=== PATIENT | female | born 1995 | race Caucasian/White ===

== ENCOUNTER 2018-09-26 13:39 | Emergency (ER) | payer OTHER, MEDICAID ==
[~2018-09-26] VITALS: Ht 152.4 cm; Wt 59.9 kg
[2018-09-26 13:55] VITALS: BP 108/66
--- NOTE | 2018-09-26 14:35 | NUR ---
DAMOIN UP TO EVALUATE PT
--- NOTE | 2018-09-26 14:35 | NUR ---
BIB MOM FOR FEVER X 1 DAY. FEVER AT HOME 99.2. MOM GAVE TYLENOL AT NOON. MED HX: AUTISIC/EPILEPSY
--- NOTE | 2018-09-26 14:58 | NUR ---
Patient discharged with v/s stable. Written and verbal after care instructions given and explained to parent/guardian. Parent/Guardian verbalized understanding of instructions. with to home. All questions addressed prior to discharge. ID band removed. Parent/Guardian advised to follow up with PMD. Rx of CHILDREN'S IBUPROFEN, ACETAMINOPHEN AND PROMETHAZINE given. Parent/Guardian educated on indication of medication including possible reaction and side effects. Opportunity to ask questions provided and answered.
[2018-09-26 14:59] VITALS: BP 108/66
== END 2018-09-26 14:58 | disposition home or self-care (01) ==
LOC: MED 13:39
DX: J06.9 Acute upper respiratory infection, unspecified (principal); F84.0 Autistic disorder
CPT/HCPCS: 99283

== ENCOUNTER 2018-10-05 11:36 | Emergency (ER) | payer OTHER, MEDICAID ==
[~2018-10-05] VITALS: Ht 154.9 cm; Wt 58.1 kg
--- NOTE | 2018-10-05 11:36 | NUR ---
PATIENT BIB EMS TO BED 09 AT THIS TIME.
[2018-10-05 11:40] VITALS: BP 106/56
--- NOTE | 2018-10-05 11:40 | NUR ---
23 Y FEMALE BIB [facility] FROM [facility] W/ HER MOTHER. WITNESSED SEIZURE FOR ABOUT A MINUTE. PER HER MOTHER SHE LAST SEIZURE WAS 2 WKS AGO, ALTHOUGH THE SEUIZURES HAVE BEEN OCCURING MORE FREQUENTLY. DENIES HEAD INJURY. DENIES VOMITING. PT IS NON-VERBAL. VSS AT THIS TIME. BED IS DOWN, LOCKED, BED RAIL X 1, ERMD TO SEE PT. HX; EPILEPSY, AUTISM, SEIZURES RX; TEGRETOL, LAMOTRIGINE, TOPAMAX- UNKNOWN DOSE
--- NOTE | 2018-10-05 11:41 | NUR ---
SEIZURE PRECAUTIONS IN PLACE, SEIZURE PADS PLACED.
--- NOTE | 2018-10-05 11:42 | NUR ---
RESIDENT RICCARDO AT PT BEDSIDE
--- NOTE | 2018-10-05 11:48 | NUR ---
BASELINE WITHIN NORMAL LIMITS FOR PATIENT AT THIS TIME. AMBULATORY STEADY.
[2018-10-05] MEDS ORDERED: CARB100S (12:08)
[2018-10-05] MEDS ORDERED: TOPI15CA (12:08)
[2018-10-05] MEDS ORDERED: LAM25 PO (12:09)
--- NOTE | 2018-10-05 12:21 | NUR ---
LAB AT BEDSIDE
[2018-10-05 12:34] LABS: BASOPHILS % (AUTO) 0.4 % (0.0-2.0); EOSINOPHILS # (AUTO) 0.7 K/uL (0-0.4); EOSINOPHILS % (AUTO) 7.3 % (0.0-4.0); HEMATOCRIT 38.6 % (36-48); HEMOGLOBIN 12.7 g/dL (12.0-16.0); LYMPHOCYTES # (AUTO) 2.1 K/uL (2.5-16.5); LYMPHOCYTES % (AUTO) 21.3 % (20.5-51.1); MEAN CORPUSCULAR HEMOGLOBIN 29 pg (27-31); MEAN CORPUSCULAR HGB CONC 33 g/dL (33-37); MEAN CORPUSCULAR VOLUME 88.5 fL (80-94); MONOCYTES # (AUTO) 0.5 K/uL (0.8-1.0); MONOCYTES % (AUTO) 5.6 % (1.7-9.3); NEUTROPHILS # (AUTO) 6.3 K/uL (1.8-7.7); NEUTROPHILS % (AUTO) 65.4 % (42.2-75.2); PLATELET COUNT (AUTO) 422 K/uL (140-450); RED BLOOD CELL COUNT(AUTO) 4.36 MIL/uL (4.20-5.40); RED CELL DISTRIBUTION WIDTH 13.8 % (11.6-13.7); WHITE BLOOD COUNT (AUTO) 9.7 K/uL (4.8-10.8)
[2018-10-05 12:45] LABS: ANION GAP 10.9 (8-16); CREATININE 0.8 mg/dL (0.6-1.3); POTASSIUM 3.9 mmol/L (3.5-5.1); TOTAL BILIRUBIN 0.1 mg/dL (0.0-1.0)
[2018-10-05 13:39] VITALS: BP 98/55
--- NOTE | 2018-10-05 13:40 | NUR ---
Patient discharged with v/s stable. Written and verbal after care instructions given and explained to pt's mother. Patient alert, oriented and pt's mother verbalized understanding of instructions. All questions addressed prior to discharge. ID band removed. Patient advised to follow up with PMD. Opportunity to ask questions provided and answered.
== END 2018-10-05 13:40 | disposition home or self-care (01) ==
LOC: MED 11:36
DX: G40.909 Epilepsy, unspecified, not intractable, without status epilepticus (principal); F84.0 Autistic disorder; Z79.899 Other long term (current) drug therapy
CPT/HCPCS: 36415; 80053; 85025; 99283

== ENCOUNTER 2018-10-31 09:29 | Emergency (ER) | payer OTHER, MEDICAID ==
[~2018-10-31] VITALS: Ht 154.9 cm; Wt 59.6 kg
[~2018-10-31 09:29] MED LIST: CARB100S; LAM25 PO; TOPI15CA
[2018-10-31 09:42] VITALS: BP 117/71
--- NOTE | 2018-10-31 10:10 | NUR ---
23 Y FEMALE BIB MOTHER C/O POOR APPETITE X2 DAYS. PT NON-VERBAL, NO SIGNS OF PAIN OR DISTRESS. -N/V/D. LAST BM YESTERDAY. LAST SIEZURE WAS YESTERDAY, PER MOM USUALY 1 SIEZURE PER MONTH. VSS AT THIS TIME. BED IS DOWN, LOCKED, BED RAIL X 1, ERMD TO SEE PT. MEDHX:AUTISM, EPILEPSY RX:TOPIRAMATE, CARBAMAZEPIN, LAMOTRIGINE
--- NOTE | 2018-10-31 10:19 | NUR ---
DR SIMMS AT BEDSIDE
--- NOTE | 2018-10-31 10:29 | NUR ---
PT AMB TO RESTROOM WITH MOTHER. STEADY GAIT
--- NOTE | 2018-10-31 10:32 | NUR ---
PT UNABLE TO GIVE URINE
--- NOTE | 2018-10-31 10:38 | NUR ---
LAB AT BEDSIDE
--- NOTE | 2018-10-31 10:41 | NUR ---
PT GIVEN WATER, WILL TRY URINE AFTER PATIENT DRINKS WATER
[2018-10-31 10:53] LABS: BASOPHILS # (AUTO) 0.1 K/uL (0.00-0.22); BASOPHILS % (AUTO) 0.6 % (0.0-2.0); EOSINOPHILS # (AUTO) 0.9 K/uL (0-0.4); EOSINOPHILS % (AUTO) 8.7 % (0.0-4.0); HEMOGLOBIN 13.4 g/dL (12.0-16.0); LYMPHOCYTES # (AUTO) 2.6 K/uL (2.5-16.5); LYMPHOCYTES % (AUTO) 24.3 % (20.5-51.1); MEAN CORPUSCULAR HEMOGLOBIN 29 pg (27-31); MEAN CORPUSCULAR HGB CONC 32 g/dL (33-37); MEAN CORPUSCULAR VOLUME 90.1 fL (80-94); MONOCYTES # (AUTO) 0.6 K/uL (0.8-1.0); MONOCYTES % (AUTO) 5.2 % (1.7-9.3); NEUTROPHILS # (AUTO) 6.6 K/uL (1.8-7.7); NEUTROPHILS % (AUTO) 61.2 % (42.2-75.2); PLATELET COUNT (AUTO) 457 K/uL (140-450); RED BLOOD CELL COUNT(AUTO) 4.66 MIL/uL (4.20-5.40); RED CELL DISTRIBUTION WIDTH 13.7 % (11.6-13.7); WHITE BLOOD COUNT (AUTO) 10.8 K/uL (4.8-10.8)
[2018-10-31 11:13] LABS: ALBUMIN 3.4 g/dL (3.4-5.0); ANION GAP 13.1 (8-16); CARBON DIOXIDE 25.2 mmol/L (21-32); CREATININE 0.9 mg/dL (0.6-1.3); POTASSIUM 3.3 mmol/L (3.5-5.1); TOTAL BILIRUBIN 0.2 mg/dL (0.0-1.0)
--- NOTE | 2018-10-31 11:19 | NUR ---
Ana lezama in [facility] - 10/31/18 at [email or web address] SIMMS AT BEDSIDE
--- NOTE | 2018-10-31 11:31 | NUR ---
PT STILL UNABLE TO GIVE URINE, DR SIMMS OKSAMRA TO DISCHARGE WITHOUT URINE COLLECTION
--- NOTE | 2018-10-31 11:40 | NUR ---
MOTHER STATES SHE WOULD LIKE TO WAIT ANOTHER 30 MIN AND TRY FOR URINE AGAIN
--- NOTE | 2018-10-31 12:10 | NUR ---
# 8 FR Urinary catheter inserted utilizing sterile technique. Immediate return of YELLOW urine noted. Urine sample collected and sent to lab. Pt tolerated procedure WELL.
[2018-10-31 12:20] VITALS: BP 123/74
--- NOTE | 2018-10-31 12:20 | NUR ---
Patient discharged with v/s stable. Written and verbal after care instructions given and explained TO MOTHER. MOTHER verbalized understanding. PATIENT Ambulatory with steady gait. All questions addressed prior to discharge. Advised to follow up with PMD.
== END 2018-10-31 12:20 | disposition home or self-care (01) ==
LOC: MED 09:29
DX: R11.10 Vomiting, unspecified (principal); R19.7 Diarrhea, unspecified; R63.0 Anorexia; F84.0 Autistic disorder; Z98.890 Other specified postprocedural states; Z79.899 Other long term (current) drug therapy
CPT/HCPCS: 36415; 80053; 81002; 81025; 85025; 99283; C1758

== ENCOUNTER 2018-12-05 20:15 | Emergency (ER) | payer OTHER, MEDICAID ==
[~2018-12-05] VITALS: Ht 162.6 cm; Wt 73.9 kg
[2018-12-05 21:04] VITALS: BP 113/65
[2018-12-05] MEDS ORDERED: LAM200 PO (21:09)
[2018-12-05] MEDS ORDERED: CARB200T4 PO (21:10)
[2018-12-05] MEDS ORDERED: TOPI100T33 PO (21:11)
--- NOTE | 2018-12-05 22:02 | NUR ---
PT AMBULATED TO BED 11
--- NOTE | 2018-12-05 22:10 | NUR ---
23 Y/O FEMALE BIB MOTHER, PRESENTS TO ED, C/O FEVER. MOTHER STATES, PT HAD A FEVER AROUND 1900 THIS MORNING TEMP 99.2. PT IS AUTISTIC AND HAS HX OF EPILEPSY, LAST SEIZURE WAS 6 DAYS AGO. PT HAS [employer]. PT ABLE TO AMBULATE. MOTHER STATES, PT'S SEIZURE GETS TRIGGERED BY HIGH TEMP. PT VSS. DR FERRER AWARE. WILL CONTINUE TO MONITOR.
[2018-12-05 22:11] LABS: BASOPHILS # (AUTO) 0.1 K/uL (0.00-0.22); BASOPHILS % (AUTO) 0.5 % (0.0-2.0); EOSINOPHILS % (AUTO) 9.1 % (0.0-4.0); HEMATOCRIT 39.2 % (36-48); LYMPHOCYTES # (AUTO) 3.8 K/uL (2.5-16.5); LYMPHOCYTES % (AUTO) 34.3 % (20.5-51.1); MEAN CORPUSCULAR HEMOGLOBIN 29 pg (27-31); MEAN CORPUSCULAR HGB CONC 33 g/dL (33-37); MEAN CORPUSCULAR VOLUME 88.2 fL (80-94); MONOCYTES # (AUTO) 0.7 K/uL (0.8-1.0); MONOCYTES % (AUTO) 6.7 % (1.7-9.3); NEUTROPHILS # (AUTO) 5.4 K/uL (1.8-7.7); NEUTROPHILS % (AUTO) 49.4 % (42.2-75.2); PLATELET COUNT (AUTO) 458 K/uL (140-450); RED BLOOD CELL COUNT(AUTO) 4.44 MIL/uL (4.20-5.40); RED CELL DISTRIBUTION WIDTH 13.5 % (11.6-13.7)
[2018-12-05 22:26] LABS: ANION GAP 15.1 (8-16); CARBON DIOXIDE 23.6 mmol/L (21-32); CREATININE 0.8 mg/dL (0.6-1.3); POTASSIUM 3.7 mmol/L (3.5-5.1)
[2018-12-05 22:32] LABS: ALBUMIN 3.2 g/dL (3.4-5.0); TOTAL BILIRUBIN 0.1 mg/dL (0.0-1.0)
[2018-12-05 23:17] LABS: APPEARANCE,URINE CLOUDY (CLEAR); BILIRUBIN,URINE NEGATIVE (NEGATIVE); BLOOD, URINE NEGATIVE (NEGATIVE); COLOR,URINE YELLOW (YELLOW); LEUKOCYTE ESTERASE ,URINE NEGATIVE (NEGATIVE); NITRITE, URINE NEGATIVE (NEGATIVE); PH,URINE 7.5 (5.0-9.0); UGLUCOSE NEGATIVE (NEGATIVE)
--- NOTE | 2018-12-06 00:10 | NUR ---
Note lise in EDM - 12/06/18 at 0049 by [email or web address] PT IS AWAKE, LAYING ON BED. PT VSS. BLEEDING IS CONTROLLED BY BANDAGES. SON IS AT BEDSIDE. DR SHI AWARE. WILL CONTINUE TO MONITOR.
--- NOTE | 2018-12-06 00:10 | NUR ---
PT IS AWAKE, LAYING ON BED. PT VSS. MOTHER IS AT BEDSIDE. DR SHI AWARE. WILL CONTINUE TO MONITOR.
[2018-12-06 01:50] VITALS: BP 116/64
--- NOTE | 2018-12-06 01:50 | NUR ---
DISCHARGE PAPERS GIVEN TO MOTHER. NO SIEZURE ACTIVITY. VSS. MOTHER INSTRUCTED TO F/U WITH NEUROLOGIST. GIVEN NUMBER TO CALL FOR SEND-OUT RESULTS. PT VERBALLIZED UNDERSTANDING OF DC INSTRUCTIONS. ALL QUESTIONS ANSWERED.
[2018-12-09 06:11] LABS: LAMOTRIGINE 5.5 ug/mL (2.0-20.0)
== END 2018-12-06 01:50 | disposition home or self-care (01) ==
LOC: MED 20:15
DX: G40.909 Epilepsy, unspecified, not intractable, without status epilepticus (principal); F84.0 Autistic disorder; Z79.899 Other long term (current) drug therapy
CPT/HCPCS: 36415; 71045; 80053; 80201; 80299; 81003; 81025; 85025; 99284; Q0092

== ENCOUNTER 2019-02-17 17:12 | Emergency (ER) | payer OTHER, MEDICAID ==
[~2019-02-17] VITALS: Ht 160 cm; Wt 54.4 kg
[~2019-02-17 17:12] MED LIST changes: -CARB100S; +CARB200T4 PO; +LAM200 PO; -LAM25 PO; +TOPI100T33 PO; -TOPI15CA
[2019-02-17 17:30] VITALS: BP 117/77
[2019-02-17] MEDS ORDERED: CARBAMIDE PEROXIDE 6.5% OT 15 ML BTL OT ONE (19:05)
== END 2019-02-17 21:06 | disposition home or self-care (01) ==
LOC: MED 17:12
DX: H60.91 Unspecified otitis externa, right ear (principal); G40.909 Epilepsy, unspecified, not intractable, without status epilepticus; F84.0 Autistic disorder; Z79.899 Other long term (current) drug therapy
CPT/HCPCS: 99283

== ENCOUNTER 2021-06-14 12:21 | Emergency (ER) | payer OTHER, MEDICAID ==
[~2021-06-14] VITALS: Ht 154.9 cm; Wt 57.8 kg
[2021-06-14 12:28] VITALS: BP 116/70
--- NOTE | 2021-06-14 12:45 | NUR ---
PATIENT W/C ASSISTED TO BED 11.Patient being evaluated by DAMION COTA at bedside.
--- NOTE | 2021-06-14 12:51 | NUR ---
Branham at bedside to assess pt at this time
--- NOTE | 2021-06-14 12:58 | NUR ---
BIB MOTHER C/O RASH ON UPPER CHEST X TODAY. LAST SEIZRE LAST MONTH. VSS. PMH: EPILEPSY, AUTISM.
--- NOTE | 2021-06-14 13:05 | NUR ---
Patient discharged with v/s stable. Written and verbal after care instructions given and explained to parent/guardian. Parent/Guardian verbalized understanding. Wheel Chair Assistedto car. All questions addressed prior to discharge. Advised to follow up with PMD.
== END 2021-06-14 13:05 | disposition home or self-care (01) ==
LOC: MED 12:21
DX: R21 Rash and other nonspecific skin eruption (principal); F84.0 Autistic disorder; G40.909 Epilepsy, unspecified, not intractable, without status epilepticus; Z79.899 Other long term (current) drug therapy
CPT/HCPCS: 99281

== ENCOUNTER 2024-01-13 17:36 | Emergency (ER) | payer OTHER, MEDICAID ==
[~2024-01-13] VITALS: Ht 154.9 cm; Wt 49.6 kg
[2024-01-13 18:18] VITALS: BP 118/70; PULSE 79; RESP 17; TEMP 98; O2SAT 98
== END 2024-01-13 20:29 | disposition home or self-care (01) ==
LOC: MED 17:36
DX: G40.909 Epilepsy, unspecified, not intractable, without status epilepticus (principal); Z79.899 Other long term (current) drug therapy
CPT/HCPCS: 99281